=== PATIENT | male | born 2005 | race Two or more races ===

== ENCOUNTER → 2024-11-01 | Outpatient (CLI) | payer MEDICAID, SELFPAY ==
--- NOTE | 2024-11-01 13:00 | XR_ITS ---
Examination: MRI scan lumbar spine with intravenous contrast TECHNIQUE: Multiple MR axial sagittal images lumbar spine post intravenous ministration 13 cc gadolinium Date and time: November 01, 2024, 1320 hours INDICATIONS: Low back pain 2 years, clinical diagnosis ankylosing spondylitis FINDINGS: Satisfactory alignment lumbar vertebral bodies No lumbar fracture No lumbar disc narrowing. Postcontrast images do not demonstrate abnormal osseous epidural conus medullaris or cauda equina enhancement Enhancement involving the SI joints not depicted There is no fusion of the SI joints IMPRESSION: Satisfactory alignment lumbar vertebral bodies No lumbar fracture No lumbar disc narrowing or focal disc protrusion. No abnormal osseous epidural conus medullaris or cauda equina enhancement
== END | disposition home or self-care (01) ==
LOC: SMRI 12:45
PROVIDERS: PCP Family Medicine; Referring Provider Internal Medicine; Visit Provider Internal Medicine
DX: M45.6 Ankylosing spondylitis lumbar region (principal)
CPT/HCPCS: 72149; A9577